=== PATIENT | female | born 1995 | race Caucasian/White ===

== ENCOUNTER 2020-03-08 23:14 | Inpatient (IN) | payer OTHER, SELFPAY ==
[2020-03-08 23:09] VITALS: BMI 22.1
[2020-03-08 23:22] LABS: Basophils % 0.3 % (0.1-2.0); Eosinophils # 0.1 K/mm3 (0.0-0.4); Eosinophils % 1.3 % (0.1-12.0); Hematocrit 33.4 % (37.0-47.0); Hemoglobin 11.4 g/dL (12.2-16.2); Lymphocytes # 2.4 K/mm3 (0.7-4.5); Lymphocytes % 30.1 % (10-50); Mean Corpuscular Hemoglobin 29.5 pg (27.0-31.2); Mean Corpuscular Volume 86.8 fl (81-99); Mean Platelet Volume 9.6 fl (7.4-10.4); Monocytes # 0.5 K/mm3 (0.1-1.0); Monocytes % 5.7 % (1.7-9.3); Neutrophils % 62.7 % (37.0-80.0); Platelet Count 164 K/mm3 (142-424); Red Blood Count 3.84 M/mm3 (4.20-5.40); White Blood Count 7.9 K/mm3 (4.8-10.8)
[2020-03-08 23:48] LABS: Adenovirus,PCR Not Detected (NotDetected); Bordetella Pertussis Not Detected (NotDetected); Chlamydophila Pneumoniae, PCR Not Detected (NotDetected); Coronavirus 19, PCR Not Detected (NotDetected); Coronavirus 229E Not Detected (NotDetected); Coronavirus NL63 Not Detected (NotDetected); Coronavirus OC43 Not Detected (NotDetected); Coronovirus HKU1,PCR Not Detected (NotDetected); Human Metapneumovirus Not Detected (NotDetected); Influenza A, PCR Not Detected (NotDetected); Influenza AH1, 2009 Not Detected (NotDetected); Influenza AH1, PCR Not Detected (NotDetected); Influenza AH3,PCR Not Detected (NotDetected); Influenza B, PCR Not Detected (NotDetected); Mycoplasma Pneumoniae, PCR Not Detected (NotDetected); Parainfluenza 1, PCR Not Detected (NotDetected); Parainfluenza 2, PCR Not Detected (NotDetected); Parainfluenza 3, PCR Not Detected (NotDetected); Parainfluenza 4, PCR Not Detected (NotDetected); Respiratory Syncytial Virus Not Detected (NotDetected); Rhinovirus/Enterovirus Not Detected (NotDetected)
[2020-03-08 23:48] LABS: Microscopic, Urine URINE MICROSCOPIC (MICROSCOPIC)
[2020-03-09 00:12] LABS: Amphetamine/Metha Screen,Urine Negative ng/ml (<1000)
[2020-03-09 00:14] LABS: Barbiturates Screen,Urine Negative ng/ml (<200)
[2020-03-09 00:15] LABS: Benzodiazepines Screen,Urine Negative ng/ml (<200); Cannabinoid Screen,Urine Negative ng/ml (<50)
[2020-03-09 00:18] LABS: Cocaine Screen,Urine Negative ng/ml (<300)
[2020-03-09 00:19] LABS: Methadone Screen,Urine Negative ng/ml (<300)
[2020-03-09 00:20] LABS: Opiate Screen,Urine Negative ng/ml (<300); Phencyclidine Screen,Urine Negative ng/ml (<25)
[2020-03-09 00:36] LABS: Appearance,Urine SL CLOUDY (Clear); Bilirubin,Urine Negative (Negative); Blood, Urine 2+ (Negative); Color,Urine YELLOW (Yellow); Glucose,Urine (UA) 2+ (Negative); Ketones,Urine TRACE (Negative); Leukocyte Esterase,Urine 1+ (Negative); Nitrate,Urine Negative (Negative); PH,Urine 6.5 (5.0-8.5); Protein,Urine Negative (Negative); Specific Gravity, Urine 1.025 (1.005-1.030)
[2020-03-09 00:44] LABS: Amorphous Sediment,Urine Trace /lpf; Mucus,Urine 4+ /lpf
[2020-03-09 01:47] VITALS: BP 112/73; PULSE 103; RESP 17; TEMP 37.6; O2SAT 98; BMI 22.1
--- NOTE | 2020-03-09 08:24 | P.PN_ITS ---
[facility] Anesthesia Checklist - Patient Identification Patient Identification: Arm Band, Verbal (Name & ) - Structural Data Admitted From: Home Planned Operative Procedure/s: Labor epidural Consent for Planned Operative Procedure(s) Verified: Yes Verified Documents: Surgical Consent, History and Physical - Chart Verification Results Verified: CBC, UA - Additional verifications Patient : Yes Anesthesia Reactions: No - Airway Assessment C-Spine Mobility Assessed: Yes TMJ Mobility Assessed: Yes Dentition: Good Dentition - Neurological Assessment Level of Consciousness: Awake, Alert, Appropriate, Follows Commands Hx Seizures: No Numbness or tingling in extremities: No - Anesthesia Plan Anesthesia Risk discussed: Yes Anesthesia Plan: Verified ASA Class: II Anesthesia Type: Epidural [facility] History I have reviewed the patient's past medical history: Yes *Have you ever received a pneumonia vaccine?: No *Have you received a flu vaccine this season?: No Anesthesia experience/problems:: No prior complications Other Surgeries: No: - *Social History Smoking Status: Former smoker Substance Use Type: denies use *Occupational Status:: unemployed *Travel in the last 8 weeks: None Family Hx:: Other (NA) Para: 2
--- NOTE | 2020-03-09 09:47 | HMH.LABNOT ---
Labor Note - Subjective: Date: 03/09/20 Time: 09:47 regular contraction - Objective: NST:: Reactive Contractions:: every 2-3 minutes Cervical Dilation:: 7 Effacement:: 90% Station: -1 Membranes: artificially ruptured Comment:: Clear fluid - Fetus: Monitoring?: Yes monitoring type:: External - Assessment: Labor progressing?: Yes Cephalopelvic disproportion?: No - Plan: Anesthesia for epidural?: Yes Continue to labor down?: Yes Plan for ?: No Continue to monitor?: Yes Start pushing?: No
--- NOTE | 2020-03-09 09:48 | HMH.OBAPHP ---
OB - H&P: HPI Antepartum - History of Present Illness Chief complaint: Regular contractions History of present illness: She is a 24-year-old 4 para 2 aborta 1 who was 37 and 6 weeks gestational age. She came in in active labor. She was seen in [facility] in [place] and was found to be 4 cm dilated. She subsequently came to our hospital because they sent her home. She was found to be 6 cm dilated here. As result of that we are admitting her for labor and delivery. She has changed from 6 to 7 cm overnight. She has an epidural. We will expect a vaginal delivery. She did have some labor she said at 27 weeks. She received a course of steroids at that time. She also received magnesium sulfate. She has been taking her vitamins sporadically. She does not take any other medications. - History of Present Criteria for establishing EDC:: LMP confirmed by 1st trimester US care: good care Ultrasounds: normal 1st trimester US, normal mid trimester US Obstetrical complications: labor Medical complications: none - Labs Blood type: O (+) positive Rubella: immune RPR/VDRL: nonreactive GBS status: positive HBsAG: negative [facility] History I have reviewed the patient's past medical history: Yes Medical History: Denies:: Seizures *Have you ever received a pneumonia vaccine?: No *Have you received a flu vaccine this season?: No Anesthesia experience/problems:: No prior complications Other Surgeries: No: - *Social History Smoking Status: Former smoker Substance Use Type: denies use, former substance user *Occupational Status:: unemployed *Travel in the last 8 weeks: None Family Hx:: No significant family history, Other (NA) 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 Para: 2 Review of Systems - Review of Systems Review of systems:: pertinent systems reviewed and negative unless documented below Meds Home Medications Medication Instructions Recorded Confirmed Type No Known Home Medications 03/09/20 03/09/20 History Allergies Allergy/AdvReac Type Severity Reaction Status Date / Time No Known Allergies Allergy Verified 03/08/20 23:10 OB - H&P: Exam - Physical Exam Vital signs: Temp Pulse Resp BP Pulse Ox 99.7 F H 103 H 17 112/73 98 03/09/20 01:47 03/09/20 01:47 03/09/20 01:47 03/09/20 01:47 03/09/20 01:47 - Constitutional no acute distress - Routine HEENT Exam Head: Present: normocephalic Eye: Present: EOMI, PERRL ENT: Present: mucous membranes moist - Routine Neck Exam Present: supple, full ROM - Routine Respiratory Exam Absent: accessory muscle use (good air entry bilaterally), respiratory distress, wheezes, crackles - Routine Cardiovascular Exam Present: RRR. Absent: murmur - Routine Abdominal Exam Present: soft, normoactive bowel sounds. Absent: tenderness, distended, guarding - Routine Rectal Exam Patient deferred: visual exam, digital exam - Routine Exam Patient deferred: external exam, groin exam, perineal exam - Routine Extremities Exam Present: full ROM. Absent: cyanosis, edema - Routine Skin Exam Present: intact. Absent: cyanosis - Routine Neurological Exam Present: alert, oriented X3 - Routine Psychiatric Exam Present: normal affect OB - Results - Labs Labs: Short CBC 03/08/20 Range/Units 23:05 WBC 7.9 (4.8-10.8) K/mm3 Hgb 11.4 L (12.2-16.2) g/dL Hct 33.4 L (37.0-47.0) % Plt Count 164 (142-424) K/mm3 Urine 03/08/20 Range/Units 23:31 Urine Color Yellow (Yellow) Urine Appearance Sl cloudy (Clear) Urine pH 6.5 (5.0-8.5) Ur Specific [place] 1.025 (1.005-1.030) Urine Protein Negative (Negative) Urine Glucose (UA) 2+ (Negative) OB - A/P Antepartum (1) labor in third trimester Current visit: Yes Status: Acute (2) Normal vaginal delivery Current visit: Yes Status: Acute - Additio
[2020-03-09 10:24] LABS: Cord Blood PH 7.34 (7.35-7.45)
--- NOTE | 2020-03-09 10:30 | HMH.DN ---
- Delivery Note Delivery Date:: 03/09/20 Delivery Time:: 10:09 Anesthesia Type: Epidural Was labor medically induced?: No Induction method: none Gestational age (weeks): 37 delivered prior to 39 weeks?: Yes Justification for early elective delivery:: Active Labor Infant Gender: Male at 1 minute: 7 at 5 minutes: 9 AF:: Clear fluid Delivery Procedure:: She is a 24-year-old 4 now para 3 aborta 1 who was 37 and 6 weeks gestational age. She was seen in [facility] in [place] yesterday and was found be 4 cm dilated. She was subsequently sent home and returned to our hospital and was found to be 6 cm dilated and mally every few minutes. As result of that she was admitted. She had all of her care in [place]. She subsequently had her membranes ruptured and was augmented with oxytocin. Under labor epidural she progressed to full dilation. She delivered spontaneously a liveborn male child at 10:09 AM on the morning of March 09, 2020. On deliver the head the anterior shoulder then delivered followed by the rest the infant's body atraumatically. The oropharynx and nasopharynx were bulb suction. The baby was vigorous. We allowed the cord to continue to pulsate for approximately 1 minute. Cord was then doubly clamped and cut and the was placed on the mother's abdomen for further care. The nurses assigned Apgars of 7 at 1 minute and 9 at 5 minutes. We then obtained cord blood as well as cord pH. She received IV oxytocin using gentle traction on the cord and countertraction on the fundus I was able to easily deliver the placenta intact. He had a normal three-vessel cord. There were no perineal or vaginal lacerations. She has O+ blood, she is rubella immune and was group B streptococcus positive. She did receive IV antibiotics while in labor. She plans to bottlefeed. Her clinical education consultant is the on-call clinical education consultant. Estimated blood loss was less than 200 cc.
[2020-03-10 07:17] LABS: Hematocrit 35.5 % (37.0-47.0)
[2020-03-10 08:00] VITALS: BP 108/60; PULSE 71; RESP 18; TEMP 36.8; O2SAT 98
--- NOTE | 2020-03-10 08:31 | HMH.ACPN2 ---
Internal Medicine - PN: Subj *Date: 03/10/20 *Time: 08:31 Interval history: She continues to do well. She is eating and drinking and ambulating. She is bottlefeeding. Her lochia is normal. Exam Vital signs and Labs for Last 24 Hours: Temp Pulse Resp BP Pulse Ox 99.7 F H 103 H 17 112/73 98 03/09/20 01:47 03/09/20 01:47 03/09/20 01:47 03/09/20 01:47 03/09/20 01:47 Laboratory Results - last 24 hr 03/09/20 10:15: Cord ABG pH 7.34 L 03/10/20 06:04: Hgb 12.0 L, Hct 35.5 L I & O for Last 24 hours: Intake & Output 03/07/20 03/08/20 03/09/20 03/10/20 11:59 11:59 11:59 11:59 Weight 117 lb Microbiology Reports for the Last 24 Hours: Microbiology 03/08/20 23:31 Urine,Clean Catch Urine Culture - Preliminary NO GROWTH AFTER 24 HOURS - Constitutional no acute distress - *Routine HEENT Exam Head: Present: normocephalic Eye: Present: EOMI, PERRL ENT: Present: mucous membranes moist Assessment and Plan (1) labor in third trimester Current visit: Yes Status: Acute Category: Medical Code(s): O60.03 - labor without delivery, third trimester (2) Normal vaginal delivery Current visit: Yes Status: Acute Category: Medical Code(s): O80 - Encounter for full-term uncomplicated delivery - Assessment and plan all Dx Assessment and Plan for all problems:: She is doing well. We will plan to send her home tomorrow.
--- NOTE | 2020-03-10 11:29 | SW/DCPLANNER ---
RECEIVED REFERRAL ON THIS PATIENT THAT PRESENTED INTO THE HOSPITAL TO DELIVER AFTER HAVING ALL HER CARE IN [facility] @ [place]... PATIENT STATED SHE WENT TO [facility] AND WAS DILATED 4 CM AND THEY WOULD NOT KEEP HER THUS SHE CAME HERE AND WAS ADMITTED AND DELIVERED A LIVE BORN MALE VIA VAGINAL DELIVERY...HER REFERRAL WAS TRIGGERED R/T PAST DRUG USE...I WENT IN TO SPEAK WITH HER AND WAS AT BEDSIDE, SHE HAD TOLD NURSING HE WAS A METH/HEROIN ADDICT, NOT SURE WHICH ONE BUT ONE OF THEM. SHE STATED HER FIRST THERESA FATHER IS IN LONG-TERM FOR MURDER. SHE SAID SHE HAS CUSTODY OF HER CHILDREN. SHE ADMITTED SHE HAS BEEN CLEAN FOR OVER 4 YRS FROM DRUG ABUSE. SHE LIVES IN [facility].. SHE DOES NOT RECEIVE WIC AT THIS TIME BUT SAID SHE IS SIGNING UP WHEN SHE GETS OUT OF THE HOSPITAL AND PLANS TO BOTTLE FEED. I ASKED HER ABOUT HER CARSEAT, BED, CLOTHING ETC,. FOR THE CHILD TO HAVE WHEN SHE DISCHARGES AND SHE SAID SHE HAS EVERYTHING SHE NEEDS. FATHER OF INFANT WAS LAYING DOWN AND NEVER ACKNOWLEDGED MUCH OF ANYTHING DURING OUR CONVERSATION.. PATIENT WAS PLEASANT AND ANSWERED MY QUESTIONS.. I DID MAKE A REPORT TO [facility] INTAKE AND SPOKE WITH RASHAWN AND ID # [id number] WAS GIVEN... WILL FOLLOW UP WITH THIS ID# TO SEE IF IT WAS ACCEPTED AND SHARE THIS WITH MD....PATIENT DID STATE SHE WILL BE USING A DOCTOR IN [facility] FOR THE BABY ONCE DISCHARGED. BOTH INFANT AND PATIENT WILL DISCHARGE [facility] PENDING NO SETBACKS...
--- NOTE | 2020-03-11 09:18 | HMH.OBDCSM ---
General - General Admission date:: 03/08/20 Discharge date: 03/11/20 HPI - History of Present Illness History of present illness: She is a 24-year-old 4 now para 3 aborta 1 who was 37 and 6 weeks gestational age. She was followed in [place] in [place] and was seen there early in the afternoon. She was 4 cm dilated and having contractions but since she did not change her cervix she was sent home. She decided to come here and she was found to be 6 cm dilated. She is mally every 2 to 3 minutes. As a result of that she was admitted for labor and delivery. Hospital Course Hospital Course: Under labor epidural progressed to full dilation and delivered spontaneously a liveborn male child at 10:09 AM on the morning of March 09, 2020. The baby weighed 5 pounds 14 ounces and had Apgars of 7 at 1 minute and 9 at 5 minutes. She has done well and has remained afebrile throughout her hospitalization. She is eating and drinking and ambulating. She is bottlefeeding. Her community service officer coordinator is Dr. Alvarado. She has O Rh positive blood, she is rubella immune and was group B streptococcus positive. She did receive IV antibiotics while in labor. She is discharged home to follow-up with her supervisor dry paste in [place] in 2 weeks time. She will continue with her vitamins and iron. She was given the usual instructions with respect to limiting her activity, driving and sexual activity. Her condition on discharge is stable and improved. Rhogam Administration: Not Indicated Objective Vital signs: Temp Pulse Resp BP Pulse Ox 98.3 F 71 18 108/60 L 98 03/10/20 08:00 03/10/20 08:00 03/10/20 08:00 03/10/20 08:00 03/10/20 08:00 no acute distress DS: Diagnosis - Discharge Diagnosis (1) labor in third trimester Status: Acute (2) Normal vaginal delivery Status: Acute Discharge Plan - Patient Discharge Instructions ACTIVITY: No heavy lifting DIET: continue same diet Additional Instructions: No heavy lifting, no strenuous activity and nothing in the vagina for 6 weeks. Patient Instructions: Depression, Hemorrhage, DI for Labor and Delivery, Vaginal , DI for Pre-eclampsia, Preventing the Spread of Coronavirus Discharge Instructions - Follow up Plan Disposition: Home, Self-Retirement Medications: Home Medications Medication Instructions Recorded Confirmed Type No Known Home Medications 03/09/20 03/09/20 History Prescriptions/Medication Reconciliation: Continued No Known Home Medications - Problem Reconciliation Problems Reviewed?: Yes
== END 2020-03-11 11:20 | disposition home or self-care (01) | DRG 807 ==
LOC: OBOUT 23:16 → OB 23:16
PROVIDERS: Admitting Provider Nurse Practitioner Obstetrics & Gynecology; Visit Provider Nurse Practitioner Obstetrics & Gynecology
DX: O80 Encounter for full-term uncomplicated delivery (principal); Z37.0 Single live birth; Z3A.37 37 weeks gestation of pregnancy
CPT/HCPCS: 59409; 36415; 59025; 80305; 81001; 82800; 85014; 85018; 85025; 86850; 87086; 87581; 87633; 87798; J0290; J0595